=== PATIENT | male | born 1960 | race Caucasian/White ===

== ENCOUNTER 2017-02-14 08:09 | Day surgery (SDC) | payer OTHER ==
--- NOTE | 2017-02-11 18:20 | GHP ---
[f rep st] PREOP HISTORY AND PHYSICAL DATE OF ADMISSION: 02/14/2017 HISTORY: The patient is a 56-year-old male who comes to us with a symptomatic, but reducible left i nguinal hernia. PAST MEDICAL HISTORY: Includes optics migraines, right patellar tracking problems and a bone spur a t the base of his right thumb. PAST SURGICAL HISTORY: Includes right clavicular fracture and cervical lymph node biopsy. MEDICATIONS: Ibuprofen. ALLERGIES: No known drug allergies. SOCIAL HISTORY: Patient is a nonsmoker. 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 He drink s rare alcohol. FAMILY HISTORY: Coronary artery disease, hypertension, osteoarthritis, psoriasis, alcoholism, obesi ty, ovarian cancer, hypertension, depression. REVIEW OF SYSTEMS: Includes some fatigue. PHYSICAL EXAM: GENERAL: Reveals a 56-year-old male, alert oriented x3, in no acute distress. HEEN T: Normocephalic, atraumatic. CHEST: Clear to auscultation bilaterally. CARDIAC: Regular rate a nd rhythm. ABDOMEN: Soft with reducible left inguinal mass. GENITAL EXAM: No testicular masses o r tenderness. EXTREMITIES: Warm and dry. IMPRESSION: This is a 56-year-old male with a symptomatic reducible left inguinal hernia. PLAN: To proceed with a laparoscopic left inguinal hernia repair with mesh, possible bilateral ingu inal hernia repair with mesh. Risks and options including but not limited to, bleeding, infection, injury to nerves, bladder injury, bowel perforation, spermatic cord injury, testicular ischemia, con version to open procedure and recurrence, were all discussed. /[id number]/MODL
[2017-02-14] MEDS ORDERED: ceFAZolin 2 GM/DEXTROSE 100 ML IV ONE (08:30)
[2017-02-14] MEDS ORDERED: LIDOCAINE 1% 2 ML INJ ONE (08:47)
[2017-02-14] MEDS ORDERED: PROPOFOL/EMULSION 500 MG/50 ML BOTTLE IV ONE (10:05)
[2017-02-14] MEDS ORDERED: fentaNYL 100 MCG/2 ML INJ ONE (10:05)
[2017-02-14] MEDS ORDERED: BUPIVACAINE 0.5% 30 ML SDV ONE (10:08)
[2017-02-14] MEDS ORDERED: MIDAZOLAM 2 MG/2 ML VIAL ONE (10:22)
[2017-02-14] MEDS ORDERED: ONDANSETRON 4 MG/2 ML VIAL ONE (12:51)
[2017-02-14] MEDS ORDERED: OXYCODONE/APAP 5/325 TAB ONE (14:29)
--- NOTE | 2017-02-15 09:21 | GOP ---
[f rep st] OPERATIVE REPORT DATE OF OPERATION: SURGEON: Lawrence Viera MD SOFTWARE SPECIALIST: None. ANESTHESIA: Dr. Rivera. PREOPERATIVE DIAGNOSIS: Left inguinal hernia. POSTOPERATIVE DIAGNOSIS: Bilateral inguinal hernias. PROCEDURE PERFORMED: FINDINGS: Patient was found to have bilateral direct defects, left greater than right. DESCRIPTION OF PROCEDURE: Patient was taken to the operating room where he received satisfactory ge neral endotracheal anesthesia by Dr. Rivera. He was placed in supine position, prepped and draped i n the usual sterile fashion. An infraumbilical incision was made. Dissection was carried down the rectus sheath, which was incised. A subfascial tunnel was developed in the preperitoneal space. Th at was dissected free with a balloon dissector, which was replaced with CO2 insufflation trocar. Tw o other trocars were placed in midline under direct vision. Parvez ligament was exposed bilaterally . The cords were mobilized bilaterally. Peritoneum was dissected off the cord structures. There w ere no indirect sacs. Direct defects were visualized. The contents were reduced. Bilateral Covidi en polyester mesh patches were placed over the inguinal floor and anchored in place with AbsorbaTack , securing it to Parvez ligament, the lacunar ligament, anterior abdominal wall, lateral abdominal w all outside the internal ring. Hemostasis was assured. Trocars were removed under direct vision. Pneumopreperitoneum was released. Trocar sites were closed with 0 Vicryl for the fascia, 4-0 Monocr yl subcuticular stitch for the skin. All layers infiltrated with 0.5% Marcaine. Blood loss negligi ble. Taken to recovery room in good condition. There were no complications. /[id number]/MODL
== END 2017-02-14 14:40 | disposition home health service (06) ==
LOC: FSGY 08:09
PROVIDERS: ATTEND Surgery
PROC: 0YUA0JZ Supplement Bilateral Inguinal Region with Synthetic Substitute, Open Approach (ICD-10-PCS; principal; 2017-02-14 09:45)
DX: K40.20 Bilateral inguinal hernia, without obstruction or gangrene, not specified as recurrent (principal)
CPT/HCPCS: 49505; C1727; C1781; J0690; J2250; J2405; J2704; J3010